=== PATIENT | male | born 1950 | race Hispanic/Latino ===

== ENCOUNTER 2020-03-20 11:58 | Emergency (ER) | payer OTHER ==
--- OUTSIDE RECORDS SUMMARY | 2020-03-20 12:01 | XMS REPORT | Summary of Care ---
:1950 Author Organization [facility] Address [address] [place] [id number] Care Team Providers Name Role Phone Pcp, Patient Does Not Have A Primary Care Provider +[id number] 0-0000 Reason for Visit Reason Comments LAB covid test Encounter Details Date Type Department Care Team Description 01/20/2020 Laboratory Only [facility] Family Bradley Akins, COMPUTER SUPPORT SPECIALIST [address] [id number] Exposure to Covid-19 [facility], Adc Fam Pob I Virus (Primary Dx) [address] [place] [address] Allergies Not on Filedocumented as of this encounter (statuses as of 01/27/2020) Medications Not on filedocumented as of this encounter (statuses as of 01/27/2020) Active Problems Not on filedocumented as of this encounter (statuses as of 01/27/2020) Social History Tobacco Use Types Packs/Day Years Used Date Never Assessed Sex Assigned at Date Recorded Not on file Job Start Date Occupation Industry Not on file Not on file Not on file Travel History Travel Start Travel End No recent travel history available. COVID-19 Exposure Response Date Recorded In the last month, have you been in contact with No / Unsure 01/20/2020 10:22 AM CDT someone who was confirmed or suspected to have Coronavirus / COVID-19? documented as of this encounter Last Filed Vital Signs Not on filedocumented in this encounter Plan of Treatment Health Maintenance Due Date Last Done Comments HEPATITIS C (HCV) SCREEN 1950 DTaP,Tdap,and Td Vaccines (1 - Tdap) 1961 Depression Screening 1962 COLONOSCOPY 02/03/2000 Zoster Recombinant Vaccine (SHINGRIX) (1 of 2) 02/03/2000 Medicare Wellness Visit 2015 PNEUMOCOCCAL VACCINES 65+ (1 of 2 - PCV13) 2015 INFLUENZA VACCINE (#1) 2020 documented as of this encounter Results Not on filedocumented in this encounter Visit Diagnoses Diagnosis Exposure to Covid-19 Virus - Primary documented in this encounter
--- OUTSIDE RECORDS SUMMARY | 2020-03-20 12:01 | XMS REPORT | Continuity of Care Document ---
:1950 Author Organization [facility] t Address [address] [place] [address] Care Team Providers Name Role Phone Lab, Reginaldo Chavira I Attending Clinician Unavailable Problems This patient has no known problems. Allergies, Adverse Reactions, Alerts This patient has no known allergies or adverse reactions. Medications This patient has no known medications. Procedures This patient has no known procedures. Encounters Start End Encounter Admission Attending Care Care Encounter Source Date/Time Date/Time Type Type Clinicians Facility Department ID 2020-01-20 2020-01-27 Laboratory Lab, [facility] [id number] 15:40:00 13:07:09 Only Reginaldo Chavira I [facility] [id number] [place] [id number] [place] [id number] [address] Results This patient has no known results.
--- OUTSIDE RECORDS SUMMARY | 2020-03-20 12:01 | XMS REPORT | Summary of Care ---
:1950 Author Organization [facility] Address [address] [place] [id number] Care Team Providers Name Role Phone Pcp, Patient Does Not Have A Primary Care Provider +[id number] 0-0000 Reason for Visit Reason Comments LAB covid test Encounter Details Date Type Department Care Team Description 01/20/2020 Laboratory Only [facility] Family Bradley Akins, MANAGER OF APPLICATION DEVELOPMENT [address] [address] Exposure to Covid-19 [facility], Adc Fam Pob I Virus (Primary Dx) [address] [place] [address] Allergies Not on Filedocumented as of this encounter (statuses as of 01/21/2020) Medications Not on filedocumented as of this encounter (statuses as of 01/21/2020) Active Problems Not on filedocumented as of this encounter (statuses as of 01/21/2020) Social History Tobacco Use Types Packs/Day Years [...]
--- NOTE | 2020-03-20 13:42 | RAD REPORT ---
EXAM DESCRIPTION: RAD - Ankle Right 3 View - 03/20/2020 1:28 pm CLINICAL HISTORY: ankle injury, persistent pain following trauma COMPARISON: No comparisons FINDINGS: No fracture, dislocation or periosteal reaction. No joint effusion seen. No joint space na rrowing. Very small plantar spur is present. Patient has spurring at the Achilles attachment. No susp icious soft tissue finding. IMPRESSION: Negative right ankle for acute or significant finding.
--- NOTE | 2020-03-20 13:45 | RAD REPORT ---
EXAM DESCRIPTION: RAD - Foot Left 3 View - 03/20/2020 1:28 pm CLINICAL HISTORY: foot injury, persistent pain following trauma COMPARISON: Foot Left 3 View dated 01/14/2017 FINDINGS: No acute fracture changes are seen. No periosteal reaction. Deformity of the fourth and fi fth proximal phalanges heads noted similar to comparison. The lateral subluxation deformities of the fourth and fifth middle phalanges match prior imaging. Flexion deformity at the third DIP joint has n ot changed. Remodeling is present from old fifth metatarsal base fracture. No air or foreign body in the soft tissues. IMPRESSION: Chronic changes are present in the left foot as detailed similar to 2017. No acute findi ng.
--- NOTE | 2020-03-20 13:45 | RAD REPORT ---
EXAM DESCRIPTION: RAD - Knee Right 3 View - 03/20/2020 1:28 pm CLINICAL HISTORY: knee pain, trauma COMPARISON: No comparisons FINDINGS: No fracture, dislocation or periosteal reaction.No joint effusion seen. No joint space georgina rowing. No foreign body or other soft tissue abnormality. IMPRESSION: Negative right knee. Clinical concerns for internal derangement or occult bony injury could be further assessed with MR im aging.
--- NOTE | 2020-03-20 13:58 | ER ---
Nurse's Notes [facility] Name: Faisal Monteiro Age: 70 yrs Sex: Male : 1950 Arrival Date: 03/20/2020 Time: 12:04 Bed 14 Private MD: Diagnosis: Contusion of left foot;Sprain of ankle;Pain in right knee Presentation: 03/20 12:08 Chief complaint: Patient states: "About a week ago I dropped a small electrical motor aj1 on the top of my foot and its still throbbing and a lot of pain on the left side. And on the right side I stepped in a hole in the back yard and I think I twisted my ankle and then the knee it starting to feel swollen and my thigh feels bruised and I feel little nodules or balls in the veins on my thigh". Coronavirus screen: Client denies travel out of the [place] in the last 14 days. Ebola Screen: Patient denies travel to an Ebola-affected area in the 21 days before illness onset. Initial Sepsis Screen: Does the patient meet any 2 criteria? No. Patient's initial sepsis screen is negative. Does the patient have a suspected source of infection? No. Patient's initial sepsis screen is negative. Risk Assessment: Do you want to hurt yourself or someone else? Patient reports no desire to harm self or others. Onset of symptoms was March 2020. 12:08 Method Of Arrival: Wheelchair aj1 12:08 Acuity: ELVER 3 aj1 Triage Assessment: 12:17 General: Appears in no apparent distress. comfortable, Behavior is calm, cooperative, aj1 appropriate for age. Pain: Complains of pain in right leg and left leg. Neuro: Level of Consciousness is awake, alert, obeys commands, Oriented to person, place, time, situation. Respiratory: Airway is patent Respiratory effort is even, unlabored, Respiratory pattern is regular, symmetrical. Historical: - Allergies: 12:17 Morphine; aj1 - Home Meds: 12:17 losartan 100 mg Oral tab 1 tab once daily [Active]; atorvastatin oral oral [Active]; aj1 venlafaxine oral oral [Active]; finasteride oral oral [Active]; insulin [Active]; Metformin Oral [Active]; - PMHx: 12:17 Diabetes - NIDDM; Hypertension; Hyperlipidemia; PTSD; Cirrhosis; aj1 - PSHx: 12:17 foot surgery; aj1 - Immunization history:: Flu vaccine is not up to date. - Social history:: Smoking status: Patient/guardian denies using tobacco. Screenin:20 Abuse screen: Denies threats or abuse. Denies injuries from another. Nutritional ca1 screening: No deficits noted. Tuberculosis screening: No symptoms or risk factors identified. Fall Risk None identified. Assessment: 12:20 General: Appears in no apparent distress. comfortable, Behavior is calm, cooperative, ca1 appropriate for age. Pain: Complains of pain in left leg and right leg Pain began 4 days ago. Neuro: Level of Consciousness is awake, alert, obeys commands, Oriented to person, place, time, situation. Derm: Skin is intact, is healthy with good turgor, Skin is pink, warm \\T\\ dry. Musculoskeletal: Circulation, motion, and sensation intact. Capillary refill < 3 seconds. 13:25 Reassessment: Patient appears in no apparent distress at this time. Patient and/or ca1 family updated on plan of care and expected duration. Pain level reassessed. Patient is alert, oriented x 3, equal unlabored respirations, skin warm/dry/pink. 14:10 Reassessment: Patient appears in no apparent distress at this time. Patient is alert, ca1 oriented x 3, equal unlabored respirations, skin warm/dry/pink. Vital Signs: 12:08 BP 150 / 85; Pulse 75; Resp 18; Temp 97.9; Pulse Ox 99% on R/A; Weight 94.35 kg (R); aj1 Height 5 ft. 9 in. (175.26 cm) (R); Pain 8/10; 13:25 BP 148 / 79; Pulse 67; Resp 15 S; Pulse Ox 100% on R/A; ca1 14:10 BP 151 / 82; Pulse 68; Resp 16 S; Pulse Ox 100% on R/A; ca1 12:08 Body Mass Index 30.72 (94.35 kg, 175.26 cm) aj ED Course: 12:04 Patient arrived in ED. mr 12:14 Triage completed. aj1 12:17 Arm band placed on Patient placed in an exam room. [facility] 12:19 Shahzad Linares PA is PHCP. scar 12:19 Adria Rivas MD is Attending Physician. [facility] 12:19 Shyanne Corcoran, RN is Primary Nurse. ca1 12:20 Patient has correct armband on for positive identification. Bed in low position. Call ca1 light in reach. Side rails up X 1. Pulse ox on. NIBP on. 13:28 Foot Left 3 View XRAY In Process Unspecified. EDMS 13:28 Ankle Right 3 View XRAY In Process Unspecified. EDMS 13:28 Knee Right 3 View XRAY In Process Unspecified. EDMS 13:56 US Extremity Venous Unilateral Ltd In Process Unspecified. EDMS 14:14 No provider procedures requiring assistance completed. Patient did not have IV access ca1 during this emergency room visit. Audi wrap to left ankle, right knee and right ankle. Administered Medications: No medications were administered Outcome: 13:58 Discharge ordered by MD. [facility] 14:14 Discharged to home via wheelchair, with significant other. ca1 14:14 Condition: stable 14:14 Discharge instructions given to patient, Instructed on discharge instructions, follow up and referral plans. Demonstrated understanding of instructions, follow-up care. 14:16 Patient left the ED. ca1 Signatures: Dispatcher [employer] EDMS Sindi Stark RN RN aj1 Shahzad Linares PA PA scar AsherHeather mr Shyanne Corcoran, RN RN ca1 Corrections: (The following items were deleted from the chart) 14:15 14:15 BP 151 / 82; Pulse 68bpm; Resp 16bpm; Spontaneous; Pulse Ox 100% RA; ca1 ca1 14:16 14:15 Reassessment: Patient appears in no apparent distress at this time. Patient is ca1 alert, oriented x 3, equal unlabored respirations, skin warm/dry/pink. ca1
--- NOTE | 2020-03-20 13:58 | EDPHYS ---
Physician Documentation [facility] Name: Faisal Monteiro Age: 70 yrs Sex: Male : 1950 Arrival Date: 03/20/2020 Time: 12:04 Bed 14 Private MD: ED Physician Adria Rivas HPI: 03/20 12:30 This 70 yrs old Male presents to ER via Wheelchair with complaints of Foot jmm Pain, Knee Pain. 12:30 The patient presents with an injury, pain. Onset: The symptoms/episode began/occurred jmm acutely, 1 day(s) ago. Modifying factors: The symptoms are alleviated by nothing. the symptoms are aggravated by movement, weight bearing, bending knee. This is a 70 year old male with a history of DM, HTN, HLP, Cirrhosis that presents to the ED with complaints of left foot pain after dropping a motor on it, the patient then developed right ankle pain when mis stepping and rolling his ankle today. Patient also complains of ongoing left knee pain and thigh pain. Denies injury to the left knee. . Historical: - Allergies: 12:17 Morphine; aj1 - Home Meds: 12:17 losartan 100 mg Oral tab 1 tab once daily [Active]; atorvastatin oral oral [Active]; aj1 venlafaxine oral oral [Active]; finasteride oral oral [Active]; insulin [Active]; Metformin Oral [Active]; - PMHx: 12:17 Diabetes - NIDDM; Hypertension; Hyperlipidemia; PTSD; Cirrhosis; aj1 - PSHx: 12:17 foot surgery; aj1 - Immunization history:: Flu vaccine is not up to date. - Social history:: Smoking status: Patient/guardian denies using tobacco. ROS: 13:53 Constitutional: Negative for fever, chills, and weight loss, Cardiovascular: Negative jmm for chest pain, palpitations, and edema, Respiratory: Negative for shortness of breath, cough, wheezing, and pleuritic chest pain. 13:53 MS/extremity: Positive for injury or acute deformity, pain. 13:53 All other systems are negative. Exam: 13:53 Constitutional: This is a well developed, well nourished patient who is awake, alert, jmm and in no acute distress. Head/Face: atraumatic. Eyes: EOMI, no conjunctival erythema appreciated ENT: Moist Mucus Membranes Neck: Trachea midline, Supple Chest/axilla: Normal chest wall appearance and motion. Cardiovascular: Regular rate and rhythm. No edema appreciated Respiratory: Normal respirations, no respiratory distress appreciated Abdomen/GI: Non distended, soft Back: Normal ROM Skin: General appearance color normal 13:53 Musculoskeletal/extremity: ROM: painful rom noted to the right knee, compartments are soft,. full dorsalis pulse, NVI. . 13:53 Skin: Appearance: Color: normal in color. 13:53 Neuro: Orientation: is normal, Mentation: is normal, Memory: is normal. 13:53 Psych: Behavior/mood is pleasant, cooperative. Vital Signs: 12:08 BP 150 / 85; Pulse 75; Resp 18; Temp 97.9; Pulse Ox 99% on R/A; Weight 94.35 kg (R); aj1 Height 5 ft. 9 in. (175.26 cm) (R); Pain 8/10; 13:25 BP 148 / 79; Pulse 67; Resp 15 S; Pulse Ox 100% on R/A; ca1 14:10 BP 151 / 82; Pulse 68; Resp 16 S; Pulse Ox 100% on R/A; ca1 12:08 Body Mass Index 30.72 (94.35 kg, 175.26 cm) aj1 MDM: 12:25 Patient medically screened. khanh 13:55 Data reviewed: vital signs, nurses notes. Counseling: I had a detailed discussion with scar the patient and/or guardian regarding: the historical points, exam findings, and any diagnostic results supporting the discharge/admit diagnosis, the need for outpatient follow up, to return to the emergency department if symptoms worsen or persist or if there are any questions or concerns that arise at home. ED course: Imaging studies negative. Patient is advised to follow up with pcp for reevaluation. Patient is other jauregui given strict return precautions. Patient understood and agrees with the plan of care. . 03/20 12:29 Order name: Foot Left 3 View XRAY; Complete Time: 13:46 [facility] 03/20 12:29 Order name: Ankle Right 3 View XRAY; Complete Time: 13:46 [facility] 03/20 12:29 Order name: Knee Right 3 View XRAY; Complete Time: 13:46 [facility] 03/20 12:29 Order name: US Extremity Venous Unilateral Ltd; Complete Time: 14:24 [facility] 03/20 13:58 Order name: Audi wrap-joint; Complete Time: 14:14 [facility] Administered Medications: No medications were administered Disposition: 03/21 06:05 Co-signature as Attending Physician, Adria Rivas MD I agree with the assessment and khanh plan of care. Disposition: 03/20/20 13:58 Discharged to Home. Impression: Contusion of left foot, Sprain of ankle, Pain in right knee. - Condition is Stable. - Discharge Instructions: Ankle Sprain, Foot Contusion, Knee Pain. - Medication Reconciliation Form, Thank You Letter, Antibiotic Education, Prescription Opioid Use form. - Follow up: Private Physician; When: 2 - 3 days; Reason: Recheck today's complaints, Continuance of care, Re-evaluation by your physician. Signatures: Dispatcher [employer] EDSindi Waldrop, BRETT RN ajAdria Denise MD MD cha Mickail, Joel, PA PA [facility] Shyanne Corcoran RN RN ca1 Corrections: (The following items were deleted from the chart) 03/20 13:54 12:30 This is a 70 year old male with a history of DM, HTN, HLP, Cirrhosis that modest[place] presents to the ED with complaints of . [facility] 14:16 13:58 03/20/2020 13:58 Discharged to Home. Impression: Contusion of left foot; Sprain ca1 of ankle; Pain in right knee. Condition is Stable. Forms are Medication Reconciliation Form, Thank You Letter, Antibiotic Education, Prescription Opioid Use. Follow up: Private Physician; When: 2 - 3 days; Reason: Recheck today's complaints, Continuance of care, Re-evaluation by your physician. [facility]
--- NOTE | 2020-03-20 14:11 | RAD REPORT ---
EXAM DESCRIPTION: US - Extremity Venous Uni Ltd - 03/20/2020 1:56 pm CLINICAL HISTORY: right kneepain, right thigh pain COMPARISON: None. TECHNIQUE: Real-time sonographic evaluation of the right lower extremity deep venous systems was per formed. FINDINGS: Normal compressibility, flow augmentation, phasic flow and spontaneous flow are identified in the right lower extremity common femoral, superficial femoral, popliteal and posterior tibial vei ns. No intraluminal filling defects seen. IMPRESSION: No DVT in the right lower extremity.
[2020-03-20 14:23] VITALS: TEMP 97.9
[2020-03-20 14:24] VITALS: O2SAT 100
[2020-03-20 14:26] VITALS: BP 151/82
== END 2020-03-20 14:16 | disposition home or self-care (01) ==
LOC: ER 11:58
DX: S93.402A Sprain of unspecified ligament of left ankle, initial encounter (principal); M25.561 Pain in right knee; W22.8XXA Striking against or struck by other objects, initial encounter; Y93.9 Activity, unspecified; Y92.9 Unspecified place or not applicable; I10 Essential (primary) hypertension; E11.9 Type 2 diabetes mellitus without complications; E78.5 Hyperlipidemia, unspecified; Z79.4 Long term (current) use of insulin; Z88.5 Allergy status to narcotic agent
CPT/HCPCS: 93971; 99283

== ENCOUNTER 2020-08-08 20:11 | Emergency (ER) | payer OTHER ==
[2020-08-08] MEDS ORDERED: FENTANYL CITR 100 MCG/2 ML ONE (23:50)
[2020-08-08] MEDS ORDERED: NA CHLORIDE 0.9% 500 ML ONE (23:50)
[2020-08-08] MEDS ORDERED: ONDANSETRON 4 MG/2 ML VIAL ONE (23:51)
[2020-08-08 23:55] LABS: ALT/SGPT 30 U/L (12-78); AST/SGOT 25 U/L (15-37); Albumin 4.3 g/dL (3.4-5.0); Alkaline Phosphatase 82 U/L (45-117); BUN Blood Urea Nitrogen 10 mg/dL (7-18); Bicarbonate 30 mmol/L (21-32); Bilirubin Direct 0.2 mg/dL (0-0.2); Bilirubin Total 0.5 mg/dL (0.2-1.0); Glucose Level 102 mg/dL (74-106); Lipase 141 U/L (73-393); Potassium 4.1 mmol/L (3.5-5.1); Protein, Total 8.3 g/dL (6.4-8.2); Sodium Level 140 mmol/L (136-145)
[2020-08-09] LABS: Urine Blood TRACE (NEG); Urine Glucose TRACE (NEG); Urine Protein NEGATIVE (NEG); Urine Specific Gravity >1.030 (1.005-1.030)
--- NOTE | 2020-08-09 00:16 | EDPHYS ---
Physician Documentation [facility] Name: Faisal Monteiro Age: 70 yrs Sex: Male : 1950 Arrival Date: 08/08/2020 Time: 20:12 Bed 26 Private MD: ED Physician Kaylin Morrison HPI: 08/08 23:19 This 70 yrs old Male presents to ER via Ambulatory with complaints of jmm Abdominal Pain. 23:19 The patient presents with abdominal pain. Onset: The symptoms/episode began/occurred jmm gradually, 1 day(s) ago. The symptoms do not radiate. Associated signs and symptoms: Pertinent negatives: diarrhea, vomiting. The symptoms are described as achy. Modifying factors: The symptoms are alleviated by nothing, the symptoms are aggravated by nothing. This is a 70 year old male with a history of cirrhosis, DM, HLP, HTN, PTSD that presents to the ED with complaints of left sided abdominal pain beginning approx 1 day ago, worsening today. Denies fever, vomiting, diarrhea. . Historical: - Allergies: 20:37 Morphine; ll1 - PMHx: 20:37 Cirrhosis; Diabetes - NIDDM; Hyperlipidemia; Hypertension; PTSD; ll1 - PSHx: 20:37 foot surgery; ll1 - Immunization history:: Flu vaccine is up to date. - Social history:: Smoking status: Patient denies any tobacco usage or history of. ROS: 23:19 Constitutional: Negative for fever, chills, and weight loss, Cardiovascular: Negative jmm for chest pain, palpitations, and edema, Respiratory: Negative for shortness of breath, cough, wheezing, and pleuritic chest pain. 23:19 Abdomen/GI: Positive for abdominal pain. 23:19 All other systems are negative. Exam: 23:19 Head/Face: atraumatic. Eyes: EOMI, no conjunctival erythema appreciated ENT: Moist jmm Mucus Membranes Neck: Trachea midline, Supple Chest/axilla: Normal chest wall appearance and motion. Cardiovascular: Regular rate and rhythm. No edema appreciated Respiratory: Normal respirations, no respiratory distress appreciated Back: Normal ROM 23:19 Skin: General appearance color normal MS/ Extremity: Moves all extremities, no obvious deformities appreciated, no edema noted to the lower extremities Neuro: Awake and alert, normal gait Psych: Behavior is normal, Mood is normal, Patient is cooperative and pleasant 23:19 Constitutional: The patient appears alert, awake, uncomfortable. 23:19 Abdomen/GI: Inspection: abdomen appears normal, Bowel sounds: normal, Palpation: soft, moderate abdominal tenderness, in the left lower quadrant. Vital Signs: 20:35 BP 160 / 69; Pulse 76; Resp 17; Temp 98.5; Pulse Ox 98% ; Weight 93.44 kg; Height 5 ft. ll1 8 in. (172.72 cm); Pain 8/10; 22:13 BP 160 / 75; Pulse 64; Resp 18; Pulse Ox 98% on R/A; ll2 22:25 Temp 98.4(O); fu 23:15 BP 153 / 74; Pulse 62; Resp 18; Pulse Ox 96% on R/A; ll2 08/09 00:20 BP 137 / 63; Pulse 66; Resp 17; Pulse Ox 96% on R/A; ll2 08/08 20:35 Body Mass Index 31.32 (93.44 kg, 172.72 cm) ll1 MDM: 08/08 23:06 Patient medically screened. [facility] 08/09 00:13 Data reviewed: vital signs, nurses notes. Counseling: I had a detailed discussion with nicolle the patient and/or guardian regarding: the historical points, exam findings, and any diagnostic results supporting the discharge/admit diagnosis, the need for outpatient follow up, to return to the emergency department if symptoms worsen or persist or if there are any questions or concerns that arise at home. 00:14 ED course: CT negative for an acute process. Patient advised to follow up with pcp for [facility] further evaluation. patient is otherwise given strict return precautions. Patient understood and agrees with the plan of care. . 08/08 23:14 Order name: Basic Metabolic Panel; Complete Time: 23:56 [facility] 08/08 23:14 Order name: CBC with Diff [facility] 08/08 23:14 Order name: Hepatic Function; Complete Time: 23:56 [facility] 08/08 23:14 Order name: Lipase; Complete Time: 23:56 [facility] 08/08 23:14 Order name: CT Abd/Pelvis - IV Contrast Only [facility] 08/08 23:22 Order name: Urine Dipstick--Ancillary (enter results); Complete Time: 00:[address] [facility] 08/08 23:14 Order name: IV Saline Lock; Complete Time: 23:31 [facility] 08/08 23:14 Order name: Labs collected and sent; Complete Time: 23:31 [facility] 08/08 23:48 Order name: Labs - recollect needed: sandy Del Valle, the purple top is clotted; Complete Time: 00:05 Administered Medications: 08/08 23:50 Drug: Zofran (Ondansetron) 4 mg Route: IVP; Site: right antecubital; ll2 23:51 Drug: NS 0.9% 500 ml Route: IV; Rate: bolus; Site: right antecubital; ll2 23:51 Drug: fentaNYL (PF) 50 mcg Route: IVP; Site: right antecubital; ll2 Disposition: 08/09 00:14 Chart complete. Chart complete. [facility] Disposition: 08/09/20 00:15 Discharged to Home. Impression: Lower abdominal pain, unspecified. - Condition is Stable. - Discharge Instructions: Abdominal Pain, Adult. - Prescriptions for Bentyl 20 mg Oral Tablet - take 1 tablet by ORAL route every 6 hours As needed; 20 tablet. - Medication Reconciliation Form, Thank You Letter, Antibiotic Education, Prescription Opioid Use form. - Follow up: Private Physician; When: 2 - 3 days; Reason: Recheck today's complaints, Continuance of care, Re-evaluation by your physician. Addendum: 08/10/2020 06:57 Co-signature as Attending Physician, Kaylin Morrison MD. m a2 Signatures: Dispatcher [employer] EDLisandro Donald RN RN Shahzad Linares PA PA [facility] Kaylin Morrison MD MD id2 Lois Whipple RN RN ll2 Namrata Rothman RN RN ll1 Corrections: (The following items were deleted from the chart) 08/09 00:51 00:15 08/09/2020 00:15 Discharged to Home. Impression: Lower abdominal pain, ll2 unspecified. Condition is Stable. Forms are Medication Reconciliation Form, Thank You Letter, Antibiotic Education, Prescription Opioid Use. Follow up: Private Physician; When: 2 - 3 days; Reason: Recheck today's complaints, Continuance of care, Re-evaluation by your physician. [facility]
--- NOTE | 2020-08-09 00:16 | ER ---
Nurse's Notes [facility] Name: Faisal Monteiro Age: 70 yrs Sex: Male : 1950 Arrival Date: 08/08/2020 Time: 20:12 Bed 26 Private MD: Diagnosis: Lower abdominal pain, unspecified Presentation: 08/08 20:35 Chief complaint: Patient states: LUQ abd pain that wraps to L side for <24 hours. ll1 Slight nausea, no fever or dysuria. Coronavirus screen: Client denies travel out of the [place] in the last 14 days. At this time, the client does not indicate any symptoms associated with coronavirus-19. Ebola Screen: Patient denies travel to an Ebola-affected area in the 21 days before illness onset. Initial Sepsis Screen: Does the patient meet any 2 criteria? No. Patient's initial sepsis screen is negative. Does the patient have a suspected source of infection? Yes: Acute abdominal pain. Risk Assessment: Do you want to hurt yourself or someone else? Patient reports no desire to harm self or others. Onset of symptoms was August 07, 2020. 20:35 Method Of Arrival: Ambulatory ll1 20:35 Acuity: ELVER 3 ll1 Historical: - Allergies: 20:37 Morphine; ll1 - PMHx: 20:37 Cirrhosis; Diabetes - NIDDM; Hyperlipidemia; Hypertension; PTSD; ll1 - PSHx: 20:37 foot surgery; ll1 - Immunization history:: Flu vaccine is up to date. - Social history:: Smoking status: Patient denies any tobacco usage or history of. Screenin:13 Abuse screen: Denies threats or abuse. Nutritional screening: No deficits noted. ll2 Tuberculosis screening: No symptoms or risk factors identified. Fall Risk None identified. Assessment: 22:14 General: Appears in no apparent distress. Behavior is calm, cooperative, appropriate ll2 for age. Pain: Complains of pain in abdomen. Neuro: Level of Consciousness is awake, alert, obeys commands, Oriented to person, place, time, situation. Cardiovascular: Patient's skin is warm and dry. Respiratory: Airway is patent Respiratory effort is even, unlabored, Respiratory pattern is regular, symmetrical. GI: Bowel sounds present X 4 quads. Abd is soft. : No signs and/or symptoms were reported regarding the genitourinary system. EENT: No signs and/or symptoms were reported regarding the EENT system. Derm: Skin is intact, is healthy with good turgor, Skin is dry, Skin is pink, warm \T\ dry. Skin temperature is warm. Musculoskeletal: Circulation, motion, and sensation intact. Range of motion: limited in left ankle. 23:29 Reassessment: Patient and/or family updated on plan of care and expected duration. Pain ll2 level reassessed. Patient is alert, oriented x 3, equal unlabored respirations, skin warm/dry/pink. 08/09 00:37 Reassessment: Patient and/or family updated on plan of care and expected duration. Pain ll2 level reassessed. Patient is alert, oriented x 3, equal unlabored respirations, skin warm/dry/pink. pt informed of D/C and is calling a ride. Vital Signs: 08/08 20:35 BP 160 / 69; Pulse 76; Resp 17; Temp 98.5; Pulse Ox 98% ; Weight 93.44 kg; Height 5 ft. ll1 8 in. (172.72 cm); Pain 8/10; 22:13 BP 160 / 75; Pulse 64; Resp 18; Pulse Ox 98% on R/A; ll2 22:25 Temp 98.4(O); fu 23:15 BP 153 / 74; Pulse 62; Resp 18; Pulse Ox 96% on R/A; ll2 08/09 00:20 BP 137 / 63; Pulse 66; Resp 17; Pulse Ox 96% on R/A; ll2 08/08 20:35 Body Mass Index 31.32 (93.44 kg, 172.72 cm) ll1 ED Course: 08/08 20:12 Patient arrived in ED. cl3 20:37 Triage completed. ll1 20:38 Arm band placed on. ll1 22:03 Shahzad Linares PA is PHCP. [facility] 22:03 Kaylin Morrison MD is Attending Physician. [facility] 22:12 Lois Whipple, BRETT is Primary Nurse. ll2 22:13 Patient has correct armband on for positive identification. Bed in low position. Call ll2 light in reach. Side rails up X 1. Pulse ox on. NIBP on. 22:13 No provider procedures requiring assistance completed. ll2 23:30 Initial lab(s) drawn, by me, sent to lab. Urine collected: clean catch specimen, clear. ll2 Inserted saline lock: 22 gauge in right antecubital area, using aseptic technique. Blood collected. 23:49 CT Abd/Pelvis - IV Contrast Only In Process Unspecified. EDMS 08/09 00:52 IV discontinued, intact, bleeding controlled, No redness/swelling at site. Pressure ll2 dressing applied. Administered Medications: 08/08 23:50 Drug: Zofran (Ondansetron) 4 mg Route: IVP; Site: right antecubital; ll2 23:51 Drug: NS 0.9% 500 ml Route: IV; Rate: bolus; Site: right antecubital; ll2 23:51 Drug: fentaNYL (PF) 50 mcg Route: IVP; Site: right antecubital; ll2 Outcome: 08/09 00:15 Discharge ordered by . scar 00:51 Patient left the ED. ll2 00:52 Discharged to home ambulatory. 2 00:52 Condition: stable 00:52 Discharge instructions given to patient, Instructed on discharge instructions, follow up and referral plans. medication usage, Demonstrated understanding of instructions, follow-up care, medications, Prescriptions given X 1. Signatures: Dispatcher [employer] EDAZ Shahzad Linares PA PA Jha Diana, Erasmo Petit RN cl3 Lois Whipple RN RN ll2 Namrata Rothman RN RN ll1
[2020-08-09 00:23] LABS: Absolute Lymphocytes (CBC) 2.4 K/uL (0.7-4.9); Basophils % 1.1 % (0-1.3); Hematocrit 40.1 % (39.6-49.0); Lymphocytes % 32.2 % (15.3-44.8); MPV 9.9 fL (7.6-11.3); RBC Red Blood Cell Count 4.53 M/uL (4.33-5.43)
[2020-08-09 01:20] VITALS: TEMP 98.4
[2020-08-09 01:21] VITALS: O2SAT 96
[2020-08-09 01:22] VITALS: BP 137/63
--- NOTE | 2020-08-09 12:28 | RAD REPORT ---
EXAM DESCRIPTION: CT - Abdomen Pelvis W Contrast - 08/09/2020 6:[address] Abdomen and Pelvis With Intravenous Contrast CLINICAL HISTORY: The patient is 70 years old and is Male; left sided abdominal pain TECHNIQUE: Axial computed tomography images of the abdomen and pelvis with intravenous contrast. S agittal and coronal reformatted images were created and reviewed. This CT exam was performed using one or more of the following dose reduction techniques: automated exposure control, adjustment of t he mA and/or kV according to patient size, and/or use of iterative reconstruction technique. COMPARISON: No relevant prior studies available. FINDINGS: LUNG BASES: Atelectasis of the left lower lobe is present. MEDIASTINUM: A large hiatal hernia containing the stomach is present. ABDOMEN: LIVER: The liver has a nodular contour and is slightly heterogeneous. GALLBLADDER AND BILE DUCTS: No calcified stones. No ductal dilation. PANCREAS: No ductal dilation. No mass. SPLEEN: Unremarkable. ADRENALS: Unremarkable. No mass. KIDNEYS AND URETERS: Unremarkable. The kidneys enhance symmetrically. No obstructing renal or ure teral calculus is seen. No hydronephrosis or hydroureter. No perinephric fluid or stranding. STOMACH AND BOWEL: The stomach is minimally distended with fluid. The small bowel is normal in ca liber. A moderate amount of stool is present throughout colon. Scattered colonic diverticula are note d without surrounding inflammation. There is no bowel obstruction. PELVIS: APPENDIX: The appendix is normal in caliber without surrounding inflammation. BLADDER: The bladder is not well distended. Mild bladder wall thickening is present. REPRODUCTIVE: The prostate is heterogeneous and mildly enlarged with protrusion into the base of the bladder. ABDOMEN and PELVIS: INTRAPERITONEAL SPACE: Unremarkable. No free air. No significant fluid collection. BONES/JOINTS: The bones are osteopenic. SOFT TISSUES: There are small bilateral fat containing inguinal hernias. VASCULATURE: Atherosclerosis of the vasculature is present. The vessels are normal in caliber. No abdominal aortic aneurysm. LYMPH NODES: Unremarkable. No enlarged lymph nodes. OTHER FINDINGS: Elevation of the left hemidiaphragm is noted. IMPRESSION: 1. Colonic diverticulosis. 2. Large hiatal hernia containing the entire stomach. No evidence of obstruction. 3. Mildly enlarged prostate which is heterogeneous. Recommend correlation with physical exam and PS A. 4. Cirrhotic appearance of the liver. Electronically signed by: Christiana Ramachandran MD 08/09/2020 12:01 AM FINISH ROLLS OPERATOR Due to temporary technical issues with the PACS/Fluency reporting system, reports are being signed by the in house radiologists without review as a courtesy to insure prompt reporting. The interpreting radiologist is fully responsible for the content of the report.
--- OUTSIDE RECORDS SUMMARY | 2020-08-10 02:19 | XMS REPORT | Continuity of Care Document ---
:1950 Author Organization [facility] t Address [address] [place] [address] Care Team Providers Name Role Phone CISSE Attending Clinician Unavailable Pcp, Does Not Have A Attending Clinician Lab, Fam Pob I Attending Clinician Unavailable ABDIEL Attending Clinician Unavailable Problems Condition Condition Condition Status Onset Resolution Last Treating Co mments Source Name Details Category Date Date Treatment Clinician Date History of History of Problem Resolve Univers depression depression d it y of [place] [facility]ici [facility] History of History of Problem Resolve Univers diabetes diabetes d ity of mellitus mellitus [place] [facility] History of History of Problem Resolve Univers sleep sleep d ity of apnea apnea [place] [facility] Injury of Injury of Problem Active Uni vers deep deep ity of peroneal peroneal [place] nerve nerve Physici ans Weakness Weakness Problem Active Unive rs ity of [place] Physici ans Polyradicu Polyradicu Problem Active U nivers lopathy lopathy ity of [place] Physici ans Weakness Weakness Problem Active Unive rs of left of left ity of lower lower [place] extremity extremity Phys ici ans Diabetes Diabetes Problem Active Unive rs mellitus mellitus ity of type 2, type 2, [place] uncontroll uncontroll Ph ysici ed ed ans 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 Family History Family Member Diagnosis Comments Start Date Stop Date Source Mother Family history of Univers ity of [place] diabetes mellitus Physici ans Mother Family history of [facility] it[facility] of [place] hypertension Physicians Social History Smoking Status Start Date Stop Date Source Never smoked tobacco (finding) [facility] of [place] [facility] Medications Ordered Filled Start Stop Current Ordering Indication Dosage Frequency Signature Comments Components Source Medication Medication Date Date Medication? Clinician (SIG) Name Name Gabapentin Gabapentin Yes SEARCH LEAD Uni vers 100 MG Oral 100 MG Oral i ty of Capsule Capsule [place] [facility] Naproxen Naproxen Yes SEARCH LEAD Univers TABS TABS ity of [place] [facility]ici [facility] Losartan Losartan Yes SEARCH LEAD [facility] Potassium Potassium ity o f TABS TABS [place] [facility] Levemir Levemir Yes SEARCH LEAD Univers FlexPen 100 FlexPen 100 i ty of UNIT/ML UNIT/ML [place] SOPN SOPN Physici ans Vital Signs Vital Name Observation Time Observation Value Comments Source Systolic blood 2020-08-04 162 mm[Hg] Location: [facility]; [facility] 14:38:00 Position: [place] Physician s Sitting Diastolic blood 2020-08-04 76 mm[Hg] [facility] 14:38:00 Position: [place] Phys[facility] s Sitting Body height 2020-08-04 68 [in_us] [facility] 14:38:00 [place] [facility] s Weight 2020-08-04 209 [lb_av] [facility] 14:38:00 [place] [facility] s Body mass index 2020-08-04 31.78 kg/m2 University o f (BMI) [Ratio] 14:38:00 [place] [facility] Body temperature 2020-08-04 97.4 [degF] [facility] 14:38:00 [place] [facility] Heart Rate 2020-08-04 65 /min [place] [facility] 14:38:00 [place] Phys[facility] s O2 SAT 2020-08-04 99 % Source: [place] [facility] 14:38:00 [place] [facility] s Systolic blood 2020-06-02 123 mm[Hg] Location: [facility]; [facility] 15:42:00 Position: [place] Physician s Sitting Diastolic blood 2020-06-02 70 mm[Hg] Location: [facility]; [facility] 15:42:00 Position: [place] Physician s Sitting Body height 2020-06-02 68 [in_us] [place] [facility] 15:42:00 [place] [facility] Weight 2020-06-02 197 [lb_av] [facility] of 15:42:00 [place] [facility] Body mass index 2020-06-02 29.95 kg/m2 University o f (BMI) [Ratio] 15:42:00 [place] [facility] ns Body temperature 2020-06-02 97.5 [degF] [facility] 15:42:00 [place] [facility] Heart Rate 2020-06-02 99 /min [facility] 15:42:00 [place] [facility] O2 SAT 2020-06-02 97 % [facility] 15:42:00 [place] [facility] s Systolic blood 2020-05-12 178 mm[Hg] Location: [facility] 13:31:00 Position: [place] Physician s Sitting Diastolic blood 2020-05-12 89 mm[Hg] Location: [facility] 13:31:00 Position: [place] Physician s Sitting Body height 2020-05-12 68 [in_us] [facility] 13:31:00 [place] [facility] s Weight 2020-05-12 197 [lb_av] [facility] 13:31:00 [place] [facility] s Body mass index 2020-05-12 29.95 kg/m2 [place] [facility] (BMI) [Ratio] 13:31:00 [place] [facility] Body temperature 2020-05-12 97.9 [degF] [facility] 13:31:00 [place] [facility] Heart Rate 2020-05-12 81 /min [facility] 13:31:00 [place] [facility] O2 SAT 2020-05-12 100 % [facility] 13:31:00 [place] [facility] Procedures Procedure Date / Time Performing Clinician Source Performed [QL] ROZ PANEL, 2020-08-04 00:00:00 [facility] COMPREHENSIVE Physicians [QL] ANCA SCREEN WITH 2020-08-04 00:00:00 [facility] MPO AND PR3 WITH REFLEX Physicia ns TO ANCA TITER [QL] C-REACTIVE PROTEIN 2020-08-04 00:00:00 [facility] Physicians [Q] SED RATE BY MODIFIED 2020-08-04 00:00:00 [facility] WESTERGREN Physicians [QL] BASIC METABOLIC 2020-06-02 00:00:00 Univers ity [facility] PANEL W/EGFR Physicians CT Abdomen w/wo contrast 2020-06-02 00:00:00 Uni [facility] [id number] Pelvis w/wo contrast 2020-06-02 00:00:00 [facility] [address] [facility] [UTP] EMG 2020-05-12 00:00:00 [place] [facility] Physicians MRI Spine thoracic w/wo 2020-05-12 00:00:00 [facility] contrast 10847 Physicians MRI Spine lumbar w/wo 2020-05-12 00:00:00 [facility] contrast [id number] Physicians Plan of Care Planned Activity Planned Date Details Comments Source Diagnostic Test 2020-06-02 CT Abdomen w/wo [facility] Pending 00:00:00 contrast [id number] Physicians [code = 69206] Diagnostic Test 2020-06-02 CT Pelvis w/wo [facility] Pending 00:00:00 contrast [id number] Physicians [code = [id number]] Diagnostic Test 2020-05-17 [UTP] EMG [code = Univers ity [facility] Pending 00:00:00 [UTP] EMG] Physicians Diagnostic Test 2020-05-12 [UTP] EMG [code = Univers ity [facility] Pending 00:00:00 [UTP] EMG] Physicians Diagnostic Test 2020-05-12 [UTP] EMG [code = Univers ity [facility] Pending 00:00:00 [UTP] EMG] Physicians Future Appointment 2020-12-22 Eitan GRAYSON [facility] 13:00:00 Physicians Encounters Start End Encounter Admission Attending Care Care Encounter Source Date/Time Date/Time Type Type Clinicians Facility Department ID 2020-08-04 2020-08-04 KENAN Lopez [facility] Neurology - [id number] Univers 14:00:00 14:00:00 t; [facility] ans 2020-07-02 2020-07-02 Telephone PcpDAVY [id number] 00:00:00 00:00:00 Patient OLIVIA [id number] Does Not HOSPITAL [id number] Have A [id number] 2020-06-29 2020-06-29 Laboratory Lab, [facility]c [facility] [id number] 16:24:12 16:44:12 Only Fam Pob I Health [id number] [place] [id number] Professio [phone] nal [address] 2020-06-02 2020-06-02 AppointKENAN Kelley [facility] Neurology - [id number] Univers 15:30:00 15:30:00 t; [facility] [place] [facility] 2020-05-17 2020-05-17 Appointmen LISA MEADOWS Neurology - [id number] Univers 08:00:00 08:00:00 t; TK MEADOWS M.D. [facility] 2020-05-12 2020-05-12 Appointmen KENAN CISSE [facility] Neurology - [id number] Univers 14:00:00 14:00:00 t; [facility] 2020-01-20 2020-01-27 Laboratory Lab, [facility] [id number] 15:40:00 13:07:09 Only Fam Pob I Health [id number] [place] [id number] Professio [phone] nal [address] One Results Test Description Test Time Test Comments Results Result Comments Source [QL] SED RATE BY MODIFIED MIRANDA 2020-08-04 00:00:00 Test Item Value Reference Range Interpretation Comme nts SED RATE BY MODIFIED MIRANDA 2 mm/h < OR = 20 N SPECIMEN RECEIVED DATE AND TIME: (test code = SED RATE BY MODIFIED [id number] MIRANDA) [facility] Physicians[QL] ROZ PANEL, [id number] 00:00:00 Test Item Value Reference Range Interpretation Comments ROZ SCREEN, IFA NEGATIVE NEGATIVE N ROZ IFA is a first line (test code = ROZ screen for detecting SCREEN, IFA) thepresence of up to approximately 1 50 autoantibodies invarious autoimmune dise ases. A negative ROZ IF A resultsuggests an ROZ-associated autoimmune disease is notp resent at this time, but is not definitive. If thereis high clinical suspic ion for Sjogren's syndr ome,testing for anti-SS-A/R o antibody should be considered.Anti -Karyn-1 antibody should be considered for clinicallysuspe cted inflammatory my opathies. AC-0: Negative International Consensus on AN A Patterns(https: //doi.org/10. 1515/cclm-2018- 0052) For additional info rmation, please refer tohttp://educat ion.[employer]/faq /BFA330(This link is being p rovided for informational/e ducational purposes only.) SPECIMEN RECEIVED DATE A ND TIME: DNA (DS) ANTIBODY <1 N IU/mL Interpretation (test code = DNA < or (DS) ANTIBODY) = 4 Negati ve 5- 9 Indeterminate > or = 10 Positive SPECIM EN RECEIVED DATE AND TIME: SCL-70 ANTIBODY <1.0 NEG <1.0 NEG N SPECIMEN REC EIVED DATE AND (test code = TIME: SCL-70 ANTIBODY) SM ANTIBODY (test <1.0 NEG <1.0 NEG N code = SM ANTIBODY) SM/GREY PERCHER ANTIBODY <1.0 NEG <1.0 NEG N SPECIMEN REC EIVED DATE AND (test code = TIME: SM/GREY PERCHER ANTIBODY) SJOGRENS ANTIBODY <1.0 NEG <1.0 NEG N (SS-A) (test code = SJOGRENS ANTIBODY (SS-A)) SJOGRENS ANTIBODY <1.0 NEG <1.0 NEG N SPECIMEN R ECEIVED DATE AND (SS-B) (test code TIME: 202041524 = SJOGRENS ANTIBODY (SS-B)) [facility] Physicians[QL] C-REACTIVE [id number] 00:00:00 Test Item Value Reference Range Interpretation Comments C-REACTIVE PROTEIN 1.0 mg/L <8.0 N SPECIMEN RECEIVED DATE (test code = AND TIME: [id number] C-REACTIVE PROTEIN) [facility]icians[facility] Abdomen/Pelvis w/wo contrast [id number] 11:10:00EXAM: CT ABDOMEN AND PELVIS WITH CONTRASTDATE: 06/10/2020 11:10 AM CSTINDICATION: - R29.898 Othersymptoms and signs involving the musculoskeletalsystemADDITIONAL INFORMATION: None.COMPARISON: None.TECHNIQUE: Volumetric CT of the abdomen and pelvis acquired following theintravenous administration of contrast. Axial, coronal and sagittal images areprovided.IV contrast: 98 mL of Omnipaque 300Entericcontrast: Water/Omnipaque 300 mixDLP (mGy-cm): 2175FINDINGS:Client Leader: Noncontributory.Lines, tubes and hardware: None.Lower thorax: Clear.Liver: Slightly lobulated contour of the liver with hypertrophy ofthe leftlobe and caudate lobe suggestive of cirrhotic appearance.Biliary tree: No intra- or extrahepatic bile duct dilation.Gallbladder: Normal.Pancreas: Normal.Spleen: Mild splenomegaly (13 cm).Adrenals: Normal.Kidneys and ureters: Normal.Bladder: Normal.Reproductive organs: Enlarged prostateGastrointestinal tract:Lower esophagus: Normal.Stomach: Large hiatal hernia with most of the stomach in the chest.Small bowel: Normal.Colon: Normal.Appendix: Normal.Peritoneum, mesentery and retroperitoneum: Nofree air, ascites or loculatedfluid.Lymph nodes: Normal.Vasculature:Aorta and branches: Moderate to large amount of calcified atheromatous plaque.No abdominal aortic aneurysm.IVC and veins: Normal.Portal and mesenteric vasculature: Prominent portal vein measuring 1.7 cm.Bones: No acute abnormality.Soft tissues: Peripherally calcified nodule in the right buttock is probablybenign and possibly related to prior injection. Soft tissue stranding in theright lower anterior abdominal wall is nonspecific and could be related toedema/inflammation/injection (series 3 image 69).IMPRESSION: 1. Cirrhotic appearance of the liver with prominence of the portal vein andmild splenomegaly.2. Large hiatal hernia with most of the stomach in the chest.3. Aorto iliac atherosclerotic changes.4. Soft tissue strandingsubcutaneous fat in the right lower anteriorabdominal wall could be related to edema/inflammation/injection site. Correlatewith physical examination findings.--Read by: Cl Jacobs MDDictated Date/time: 06/10/20 14:08Electronically Signed by: Cl Jacobs MD 1 08/11/2013:28FINAL REPORTUnAcadia Healthcare Spine lumbar w/wo contrast [id number] 12:23:00EXAM: MRI THORACIC SPINE WITHOUT AND WITH CONTRAST.EXAM: MRI LUMBAR SPINE WITHOUT AND WITH CONTRAST.DATE: 05/31/2020 11:14 CSTINDICATION: Patient with left-sided foot drop. Patient also complains ofconti nuous back pain.COMPARISON: None.TECHNIQUE: Multiplanar multisequence magnetic resonance imaging images of thethoracic and lumbar spine.IV Contrast: 20 mL Dotarem.FINDINGS:CORD EVALUATION: The visualized cord appears normal in size and signal. Theconus ends behind the T12-L1 disc space level. The nerve roots of the caudaequina appear unremarkable.THORACIC SPINE:The thoracic vertebral body heights aremaintained. There is no focal bonelesion identified. There is no marrow signal abnormality.There is no disc protrusion, canal stenosis or neural foraminal narrowing inthe thoracic spine.LUMBAR SPINE:Surgical changes from prior left L5 laminectomy are noted.The lumbar vertebral body heights are maintained and there is no focal bonelesion. There is no marrow signal abnormality.At L1-2, L2-3 and L3-4, there is no disc protrusion, canal stenosis or neuralforaminal narrowing.At L4-5: There is a minimal disc bulge. There is no canal stenosis or neuralforaminal narrowing. Mild right facet disease is noted. At L5-S1: There is mild facet disease which is more pronounced on the right.There is no disc protrusion, canal stenosis or neural foraminal narrowing.The pre and paravertebral soft tissues appear unremarkable. The visualized softtissues in the abdomen appear unremarkable.IMPRESSION:1. Cord appears normal in size and signal. The conus ends behind the Z34-F1ybzm space level. Nerve roots of the cauda equina appear unremarkable.2. Unremarkable MRI of the thoracic spine with no canal stenosis or neuralforaminal narrowing.3. Surgical changes from prior left L5 laminectomy. Mild enhancement is notedin the surgical bed and this indicates scar tissue.4. There is no canal stenosis or neural foraminal narrowing in the lumbarspine.--Read by: Sujit Hollisictated Date/time: 05/31/20 15:00Electronically Signed by: Sujit Hollis MD 05/31/2015:09FINAL REPORTUnAcadia Healthcare Spine thoracic w/wo contrast [id number] 11:48:00EXAM: MRI THORACIC SPINE WITHOUT AND WITH CONTRAST.EXAM: MRI LUMBAR SPINE WITHOUT AND WITH CONTRAST.DATE: 05/31/2020 11:14 CSTINDICATION: Patient with left-sided foot drop. Patient also complains ofcontinuous back pain.COMPARISON: None.TECHNIQUE: Multiplanar multisequence magnetic resonance imaging images of thethoracic and lumbar spine.IV Contrast: 20 mL Dotarem.FINDINGS:CORD EVALUATION: The visualized cord appears normal in size and signal. Theconus ends behind the T12-L1 disc space level. The nerve roots of the caudaequina appear unremarkable.THORACIC SPINE:The thoracic vertebral body heights aremaintained. There is no focal bonelesion identified. There is no marrow signal abnormality.There is no disc protrusion, canal stenosis or neural foraminal narrowing inthe thoracic spine.LUMBAR SPINE:Surgical changes from prior left L5 laminectomy are noted.The lumbar vertebral body heights are maintained and there is no focal bonelesion. There is no marrow signal abnormality.At L1-2, L2-3 and L3-4, there is no disc protrusion, canal stenosis or neuralforaminal narrowing.At L4-5: There is a minimal disc bulge. There is no canal stenosis or neuralforaminal narrowing. Mild right facet disease is noted.At L5-S1: There is mild facet disease which is more pronounced on the right.There is no disc protrusion, canal stenosis or neural foraminal narrowing.The pre and paravertebral soft tissues appear unrema rkable. The visualized softtissues in the abdomen appear unremarkable.IMPRESSION:1. Cord appears normal in size and signal. The conus ends behind the V42-B6advg space level. Nerve roots of the cauda equina appear unremarkable.2. Unremarkable MRI of the thoracic spine with no canal stenosis or neuralforaminal narrowing.3. Surgical changes from prior left L5 laminectomy. Mild enhancement is notedin thesurgical bed and this indicates scar tissue.4. There is no canal stenosis or neural foraminal narrowing in the lumbarspine.--Read by: Sujit Hollis MDDictated Date/time: 05/31/20 15:00Electronically Signed by: Sujit Hollis MD 05/31/2015:09FINAL REPORTUnShriners Hospitals for Children
--- OUTSIDE RECORDS SUMMARY | 2020-08-10 02:19 | XMS REPORT | Summary of Care ---
:1950 Author Name YOUNG MORALES M.D. Address Unavailable Unavailable , Care Team Providers Name Role Phone KENAN CISSE M.D. 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 Weakness (780.79, R53.1) Status: Active Medications Name Dates Details Gabapentin 100 MG Oral Capsule Refills: 0 Active Naproxen TABS Refills: 0 Active Losartan Potassium TABS Refills: 0 Active Levemir FlexPen 100 UNIT/ML SOPN Refills: 0 Active Allergies and Adverse Reactions Name Dates Details No Known Drug Allergies (Allergy) Status : Active Past Medical History Name Dates Details History of depression (V11.8, Z86.59) St atus: Resolved History of diabetes mellitus (V12.29, Z86.39) Status: Resolved History of sleep apnea (V13.89, Z86.69) Status: Resolved Procedures Procedure Dates Details [UTP] EMG Date: 12-May-2020 [UTP] EMG Date: 12-May-2020 MRI Spine thoracic w/wo contrast [id number] Date: 12-May-2020 MRI Spine lumbar w/wo contrast [id number] Date: 12-May-2020 Immunization Name Dates Details Immunizations not documented Family History Name Dates Details Family history of diabetes mellitus (V18.0, Z83.3) Status: Active Family history of hypertension (V17.49, Z82.49) Status: Active Social History Name Dates Details - Status: Name Dates Details Never smoked tobacco (finding) Vital Signs Date Test Result Details [id number] Systolic blood pressure 178 mm[Hg] Status: Comments: Location: LUE; Position: Sitting Diastolic blood pressure 89 mm[Hg] Status: Comment s: Location: LUE; Position: Sitting Body height 68 in Status: Weight 197 lb Status: Body mass index (BMI) [Ratio] 29.95 kg/m2 Status: Body surface area Derived from formula 2.03 m2 S tatus: Body temperature 97.9 f Status: Heart Rate 81 /min Status: O2 SAT 100 % Status: Results Date Description Value Details Results not documented Plan of Care Name Dates Details Planned Observations [UTP] EMG On: 12-May-2020 Intent Planned Goals not documented Planned Encounters Appointment; KENAN CISSE M.D. On: 02-Jun-2020 15:30 Interventions Provided Labs/Procedures/ImagingTobacco Use Screening; Done: 12 May 2020 Instructions Name Dates Details Instructions not documented Encounters Appointment; KENAN CISSE M.D. On: 12-May-2020 14:00 Encounter Diagnosis: Problem not documented
--- OUTSIDE RECORDS SUMMARY | 2020-08-10 02:20 | XMS REPORT | Summary of Care ---
[...] Date: 12-May-2020 MRI Spine thoracic w/wo contrast [id number] Date: 12-May-2020 MRI Spine lumbar w/wo contrast [id number] Date: 12-May-2020 Immunization Name Dates Details Immunizations not documented Family History Name Dates Details Family history of diabetes mellitus (V18.0, Z83.3) Status: Active Family history of hypertension (V17.49, Z82.49) Status: Active Social History Name Dates Details - Status: Name Dates Details Never smoked tobacco (finding) Vital Signs Date Test Result Details [id number] Systolic blood pressure 178 mm[Hg] Status: Comments: [...] Labs/Procedures/ImagingTobacco Use Screening; Done: 12 May 2020 Discussion/SummaryPatient is a 70 yo M with PMHx of long-standing T2DM, presents to neurology clinic for evaluation ofL foot drop. Patient reports symptoms started after he dropped a heavy object on his foot, but that is unlikely to be the cause or inciting factor for his symptoms. His fall may be related. History andexam is suspicious for L5-S1 radiculopathy vs sciatic mononeuropathy. Peroneal neuropathy at fibularhead is less likely as patient seems to have some tibial nerve involvement also. Weakness of L quadriceps and iliopsoas complicates the clinical picture and we do have to include multilevel lumbar involvement or lumbar plexopathy in the differential. Finally, a T8 sensory level suggests thoracic involvement, though patient does not have any UMN signs (reflexes could be confounded by history of DM). We will begin our evaluation with EMG/NCS of the LLE and spinal imaging. - EMG/NCS at soonest available appt - MRI of L and T spine - RTC 1-2 weeks after results Instructions Name Dates Details Instructions not documented Encounters Appointment; KENAN CISSE M.D. On: 12-May-2020 14:00 Encounter Diagnosis: Problem not documented
--- OUTSIDE RECORDS SUMMARY | 2020-08-10 02:20 | XMS REPORT | Summary of Care ---
:1950 Author Name Fili Armstrong M.A. 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 Weakness (780.79, R53.1) Status: Active Polyradiculopathy (729.2, M54.10) Status : Active Weakness of left lower extremity (729.89, R29.898) Status: Active Diabetes mellitus type 2, uncontrolled (250.02, E11.65) Status: Active Medications Name Dates Details Gabapentin [...] Procedure Dates Details [UTP] EMG Date: 12-May-2020 MRI Spine thoracic w/wo contrast [id number] Date: 12-May-2020 MRI Spine lumbar w/wo contrast [id number] Date: 12-May-2020 Immunization Name Dates Details Immunizations not documented Family History Name Dates Details Family history of diabetes mellitus (V18.0, Z83.3) Status: Active Family history of hypertension (V17.49, Z82.49) Status: Active Social History Name Dates Details - Status: Name Dates Details Never smoked tobacco (finding) Vital Signs Date Test Result Details [id number] Systolic blood pressure 178 mm[Hg] Status: Comments: [...] Dates Details Planned Observations [UTP] EMG On: 17-May-2020 Intent Planned Goals not documented Planned Encounters Appointment; KENAN CISSE M.D. On: 02-Jun-2020 15:30 Instructions Name Dates Details Instructions not documented Encounters Appointment; KENAN CISSE M.D. On: 12-May-2020 14:00 Encounter Diagnosis: Problem not documented Appointment; TK MEADOWS M.D. On: 17-May-2020 8:00 Encounter Diagnosis: Problem not documented
--- OUTSIDE RECORDS SUMMARY | 2020-08-10 02:20 | XMS REPORT | Summary of Care ---
:1950 Author Name YOUNG MORALES M.D. Address Unavailable Unavailable , Care Team Providers Name Role Phone KENAN CISSE M.D. Unavailable Unavailable EMMANUEL HUNTER MD Unavailable Unavailable MISHA LUCIA MD Unavailable Unavailable CARMEN COLMENARES PA, YOUNG A Unavailable Unavailable Unavailable Unavailable Unavailable Functional Status [...] Date: 12-May-2020 MRI Spine thoracic w/wo contrast 94461 Date: 12-May-2020 MRI Spine lumbar w/wo contrast 79881 Date: 12-May-2020 Immunization Name Dates Details Immunizations not documented Family History Name Dates Details Family history of diabetes mellitus (V18.0, Z83.3) Status: Active Family history of hypertension (V17.49, Z82.49) Status: Active Social History Name Dates Details - Status: Name Dates Details Never smoked tobacco (finding) Vital Signs Date Test Result Details [id number] Systolic blood pressure 178 mm[Hg] Status: Comments: [...] of Care Name Dates Details Planned Observations Planned Goals not documented Planned Encounters Appointment; TK MEADOWS M.D. On: 17-May-2020 8:00 Appointment; KENAN CISSE M.D. On: 02-Jun-2020 15:30 [...]
--- OUTSIDE RECORDS SUMMARY | 2020-08-10 02:20 | XMS REPORT | Summary of Care ---
:1950 Author Name Titi Cortes Address Unavailable Unavailable , Care Team Providers Name Role Phone Cortes, Walls Unavailable Unavailable SULTAN COLMENARES, EMMANUEL Sheppard Unavailable Unavailable REA COLMENARES, MISHA LUDWIG Unavailable Unavailable CARMEN COLMENARES [place], YOUNG Martinez Unavailable Unavailable Unavailable Unavailable Unavailable [...] Z86.69) Status: Resolved Procedures Procedure Dates Details [QL] BASIC METABOLIC PANEL W/EGFR Date: 02-Jun-2020 CT Abdomen w/wo contrast 42069 Date: 02-Jun-2020 CT Pelvis w/wo contrast 19968 Date: 02-Jun-2020 Immunization Name Dates Details Immunizations not documented Family History Name Dates Details Family history of diabetes mellitus (V18.0, Z83.3) Status: Active Family history of hypertension (V17.49, Z82.49) Status: Active Social History Name Dates Details - Status: Name Dates Details Never smoked tobacco (finding) Vital Signs Date Test Result Details [id number] Systolic blood pressure 123 mm[Hg] Status: Comments: Location: LUE; Position: Sitting Diastolic blood pressure 70 mm[Hg] Status: Comment s: Location: LUE; Position: Sitting Body height 68 in Status: Weight 197 lb Status: Body mass index (BMI) [Ratio] 29.95 kg/m2 Status: Body surface area Derived from formula 2.03 m2 S tatus: Body temperature 97.5 f Status: Heart Rate 99 /min Status: O2 SAT 97 % Status: 17-[id number]:31 Systolic blood pressure 178 mm[Hg] Status: Comments: [...] Planned Encounters Appointment; KENAN CISSE M.D. On: 04-Aug-2020 14:00 Interventions Provided Labs/Procedures/ImagingCT Abdomen w/wo contrast 45921; To Be Done: 02 Jun 2020CT Pelvis w/wo contrast 34934; To Be Done: 02 Jun 2020 Instructions Name Dates Details Instructions not documented Encounters Appointment; KENAN CISSE M.D. On: 12-May-2020 14:00 Encounter Diagnosis: Problem not documented Appointment; TK MEADOWS M.D. On: 17-May-2020 8:00 Encounter Diagnosis: Problem not documented
--- OUTSIDE RECORDS SUMMARY | 2020-08-10 02:20 | XMS REPORT | Summary of Care ---
:1950 Author Name Rachel Pedersen M.A. Address Unavailable Unavailable , Care Team Providers Name Role Phone Rachel Pedersen M.A. Unavailable Unavailable EMMANUEL HUNTER MD Unavailable Unavailable REA COLMENARES, MISHA LUDWIG Unavailable Unavailable CARMEN COLMENARES [place], YOUNG Martinez Unavailable Unavailable Unavailable Unavailable Unavailable [...] Date: 12-May-2020 MRI Spine thoracic w/wo contrast 10851 Date: 12-May-2020 MRI Spine lumbar w/wo contrast 38943 Date: 12-May-2020 Immunization Name Dates Details Immunizations not documented Family History Name Dates Details Family history of diabetes mellitus (V18.0, Z83.3) Status: Active Family history of hypertension (V17.49, Z82.49) Status: Active Social History Name Dates Details - Status: Name Dates Details Never smoked tobacco (finding) Vital Signs Date Test Result Details [id number] Systolic blood pressure 178 mm[Hg] Status: Comments: [...]
--- OUTSIDE RECORDS SUMMARY | 2020-08-10 02:20 | XMS REPORT | Summary of Care ---
:1950 Author Name Irlanda Benavidez M.A. Address Unavailable Unavailable , Care Team Providers Name Role Phone KENAN CISSE M.D. Unavailable Unavailable EMMANUEL HUNTER MD Unavailable Unavailable REA COLMENARES, MISHA LUDWIG Unavailable Unavailable CARMEN COLMENARES [place], YOUNG Martinez Unavailable Unavailable Unavailable Unavailable Unavailable [...] W/EGFR Date: 02-Jun-2020 CT Abdomen w/wo contrast 40943 Date: 02-Jun-2020 CT Pelvis w/wo contrast 43988 Date: 02-Jun-2020 Immunization Name Dates Details Immunizations not documented Family History Name Dates Details Family history of diabetes mellitus (V18.0, Z83.3) Status: Active Family history of hypertension (V17.49, Z82.49) Status: Active Social History Name Dates Details - Status: Name Dates Details Never smoked tobacco (finding) Vital Signs Date Test Result Details [id number] Systolic blood pressure 123 mm[Hg] Status: Comments: [...] /min Status: O2 SAT 97 % Status: 98-Yig-104585:31 Systolic blood pressure 178 mm[Hg] Status: Comments: [...] of Care Name Dates Details Planned Observations CT Abdomen w/wo contrast 43519 On: 02-Jun-[address] Pelvis w/wo contrast 40923 On: 02-Jun-2020 Intent Planned Goals not documented Planned Encounters Physical Therapy Referral Appointment; KENAN CISSE M.D. On: 04-Aug-2020 14:00 Interventions Provided Labs/Procedures/Imaging[QL] BASIC METABOLIC PANEL W/EGFR; To Be Done: 02 Jun 2020 Instructions Name Dates Details Instructions not documented Encounters Appointment; KENAN CISSE M.D. On: 12-May-2020 14:00 Encounter Diagnosis: Problem not documented Appointment; TK MEADOWS M.D. On: 17-May-2020 8:00 Encounter Diagnosis: Problem not documented Appointment; KENAN CISSE M.D. On: 02-Jun-2020 15:30 Encounter Diagnosis: Problem not documented
--- OUTSIDE RECORDS SUMMARY | 2020-08-10 02:20 | XMS REPORT | Summary of Care ---
:1950 Author Name KENAN CISSE M.D. Address Unavailable Unavailable , Care Team Providers Name Role Phone KENAN CISSE M.D. Unavailable Unavailable SULTAN COLMENARES, EMMANUEL Sheppard Unavailable Unavailable REA COLMENARES, MISHA LUDWIG Unavailable Unavailable CARMEN COLMENARES [place], YOUNG Martinez Unavailable Unavailable Unavailable Unavailable Unavailable [...] W/EGFR Date: 02-Jun-2020 CT Abdomen w/wo contrast 68191 Date: 02-Jun-2020 CT Pelvis w/wo contrast 91712 Date: 02-Jun-2020 Immunization Name Dates Details Immunizations not documented Family History Name Dates Details Family history of diabetes mellitus (V18.0, Z83.3) Status: Active Family history of hypertension (V17.49, Z82.49) Status: Active Social History Name Dates Details - Status: Name Dates Details Never smoked tobacco (finding) Vital Signs Date Test Result Details [id number] Systolic blood pressure 123 mm[Hg] Status: Comments: [...] /min Status: O2 SAT 97 % Status: 82-[id number]:31 Systolic blood pressure 178 mm[Hg] Status: Comments: [...] Observations Planned Goals not documented Planned Encounters Physical Therapy Referral Appointment; KENAN CISSE M.D. On: 04-Aug-2020 14:00 Interventions Provided Labs/Procedures/Imaging[QL] BASIC METABOLIC PANEL W/EGFR; To Be Done: 02 Jun 2020Discussion/SummaryPatient is a 70 yo M with PMHx of long-standing T2DM, presents to neurology clinic for evaluation ofL foot drop. 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 Etiology of such finding could be due to long-standing diabetes, or a tumor/mass affecting the area. We will proceed with lumbar plexus imaging. Will also refer to PT. - CT abdomen/pelvis with contrast - Physical therapy referral - advised to wear AFO brace - RTC after results Instructions Name Dates Details Instructions not documented Encounters Appointment; KENAN CISSE M.D. On: 12-May-2020 14:00 Encounter Diagnosis: Problem not documented Appointment; TK MEADOWS M.D. On: 17-May-2020 8:00 Encounter Diagnosis: Problem not documented Appointment; KENAN CISSE M.D. On: 02-Jun-2020 15:30 Encounter Diagnosis: Problem not documented
--- OUTSIDE RECORDS SUMMARY | 2020-08-10 02:20 | XMS REPORT | Summary of Care ---
:1950 Author Name Rachel Pedersen M.A. Address Unavailable Unavailable , Care Team Providers Name Role Phone Rachel Pedersen M.A. Unavailable Unavailable EMMANUEL HUNTER MD Unavailable Unavailable REA COLMENARES, MISHA LUDWIG Unavailable Unavailable CARMEN COLMENARES [place], YOUNG Martinez Unavailable Unavailable Unavailable Unavailable Unavailable [...] Z86.69) Status: Resolved Procedures Procedure Dates Details MRI Spine thoracic w/wo contrast 65513 Date: 12-May-2020 MRI Spine lumbar w/wo contrast 62455 Date: 12-May-2020 Immunization Name Dates Details Immunizations not documented Family History Name Dates Details Family history of diabetes mellitus (V18.0, Z83.3) Status: Active Family history of hypertension (V17.49, Z82.49) Status: Active Social History Name Dates Details - Status: Name Dates Details Never smoked tobacco (finding) Vital Signs Date Test Result Details 54-[id number] Systolic blood pressure 178 mm[Hg] Status: Comments: [...]
--- OUTSIDE RECORDS SUMMARY | 2020-08-10 02:21 | XMS REPORT | Summary of Care ---
:1950 Author Name KENAN CISSE M.D. Address Unavailable Unavailable , Care Team Providers Name Role Phone KENAN CISSE M.D. 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 Weakness (780.79, R53.1) Status: Active Weakness of left lower extremity (729.89, R29.898) Status: Active Diabetes mellitus type 2, uncontrolled (250.02, E11.65) Status: Active Polyradiculopathy (729.2, M54.10) Status : Active Lumbosacral plexopathy (353.1, G54.1) St atus: Active Medications Name Dates Details Gabapentin 100 [...] Status: Resolved Procedures Procedure Dates Details [QL] ROZ PANEL, COMPREHENSIVE Date: 04-Aug-2020 [QL] ANCA SCREEN WITH MPO AND PR3 WITH REFLEX TO ANCA TITER Date: 04-Aug-2020 [QL] C-REACTIVE PROTEIN Date: 04-Aug-2020 [Q] SED RATE BY MODIFIED WESTERGREN Date: 04-Aug-2020 Immunization Name Dates Details Immunizations not documented Family History Name Dates Details Family history of diabetes mellitus (V18.0, Z83.3) Status: Active Family history of hypertension (V17.49, Z82.49) Status: Active Social History Name Dates Details - Status: Name Dates Details Never smoked tobacco (finding) Vital Signs Date Test Result Details 3-[id number]:38 Systolic blood pressure 162 mm[Hg] Status: Comments: Location: RLE; Position: Sitting Diastolic blood pressure 76 mm[Hg] Status: Comment s: Location: RLE; Position: Sitting Body height 68 in Status: Weight 209 lb Status: Body mass index (BMI) [Ratio] 31.78 kg/m2 Status: Body surface area Derived from formula 2.08 m2 S tatus: Body temperature 97.4 f Status: Heart Rate 65 /min Status: O2 SAT 99 % Status: Comments: So urce: RA Results Date Description Value Details Results not documented Plan of Care Name Dates Details Planned Observations Planned Goals not documented Planned Encounters Physical Therapy Referral Appointment; KENAN CISSE M.D. On: 22-Dec-2020 13:00 Interventions Provided Labs/Procedures/Imaging[Q] SED RATE BY MODIFIED WESTERGREN; To Be Done: 04 Aug 2020[QL] ROZ PANEL, COMPREHENSIVE; To Be Done: 04 Aug 2020[QL] ANCA SCREEN WITH MPO AND PR3 WITH REFLEX TO ANCA TITER; To Be Done: 04 Aug 2020[QL] C-REACTIVE PROTEIN; To Be Done: Augiscussion/SummaryPatient is a 70 yo M with PMHx of long-standing T2DM, presents to neurology clinic for evaluation ofL foot drop. 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 - Physical therapy referral - advised to continue to wear AFO brace - Labs: ESR, CRP, ANCA, ROZ to r/o vasculitis or inflammatory cause - RTC 3 months Instructions Name Dates Details Instructions not documented Encounters Appointment; KENAN CISSE M.D. On: 12-May-2020 14:00 Encounter Diagnosis: Problem not documented Appointment; TK MEADOWS M.D. On: 17-May-2020 8:00 Encounter Diagnosis: Problem not documented Appointment; KENAN CISSE M.D. On: 02-Jun-2020 15:30 Encounter Diagnosis: Problem not documented Appointment; KENAN CISSE M.D. On: 04-Aug-2020 14:00 Encounter Diagnosis: Problem not documented
--- OUTSIDE RECORDS SUMMARY | 2020-08-10 02:21 | XMS REPORT | Summary of Care ---
:1950 Author Organization [facility] Address [address] [place] [address] Care Team Providers Name Role Phone Pcp, Does Not Have A Primary Care Provider Reason for Visit Reason Comments Results COVID Encounter Details Date Type Department Care Team Description 07/02/2020 Telephone [facility] Pcp, Patient Does Not Results (COVID ) [address] [place] [address] [place] [address] [address] [place] [address] [place], [place] [address] Allergies Not on Filedocumented as of this encounter (statuses as of 07/02/2020) Medications Not on filedocumented as of this encounter (statuses as of 07/02/2020) Active Problems Not on filedocumented as of this encounter (statuses as of 07/02/2020) Social History Tobacco Use Types Packs/Day Years Used Date Never Assessed Sex Assigned at Date Recorded Not on file documented as of this encounter Last Filed Vital Signs Not on filedocumented in this encounter Miscellaneous Notes Telephone Encounter - Paula Guzman RN - 07/02/2020 1:39 PM [facility] Faisal Monteiro Jr. is a 70 year old male No answer X multiple attempts. LVM to call back. Paula Guzman, RN, BSN [facility] Triage Nurse elephone Encounter - Zena Cortes - 07/02/2020 9:30 AM CST Faisal Monteiro Jr. is a 70 year old male. Pt is calling for his test results ( was not able to sign in for my chart COVID-19 (MOLECULAR TESTING NUCLEIC ACID AMPLIFICATION) Status: Final result Visible to patient: No (not released) Dx: Exposure to SARS-associated coronavirus Specimen Information: NASOPHARYNGEAL SWAB Component Ref Range & Units 3d ago SARS-CoV-2 NAAT Not Detected Not Detected documented in this encounter Plan of Treatment Health Maintenance Due Date Last Done Comments HEPATITIS C (HCV) SCREEN 1950 Depression Screening 1962 DTaP,Tdap,and Td Vaccines (1 - Tdap) 1969 COLON CANCER SCREENING ANNUAL FIT/FOBT 02/03/2000 COLON CANCER SCREENING FIT DNA EVERY 3 YEARS 02/03/2000 COLON CANCER SCREENING SIGMOIDOSCOPY EVERY 5 YEARS 02/03/2000 COLONOSCOPY 02/03/2000 Colorectal Cancer Screening 02/03/2000 Zoster Recombinant Vaccine (SHINGRIX) (1 of 2) 02/03/2000 Medicare Wellness Visit 2015 PNEUMOCOCCAL VACCINES 65+ (1 of 1 - PPSV23) 2015 INFLUENZA VACCINE (#1) 2020 documented as of this encounter Results Not on filedocumented in this encounter Insurance Payer Benefit Plan / Subscriber ID Effective Dates Phone Addre ss Type Group [facility] [id number] 2017-en HMO/PPO/PO [employer]ARED SERVICES HEALTHCARE t S SHARED SERVICE documented as of this encounter
--- OUTSIDE RECORDS SUMMARY | 2020-08-10 02:21 | XMS REPORT | Summary of Care ---
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 [address] [place] [address] Exposure to Medicine - [facility], Adc Fam Pob I SARS-associated [address] [facility] coronaviru s ([address] Dx) [place] [address] Allergies Not on Filedocumented as of this encounter (statuses as of 06/29/2020) Medications Not on filedocumented as of this encounter (statuses as of 06/29/2020) Active Problems Not on filedocumented as of this encounter (statuses as of 06/29/2020) Social History Tobacco Use Types Packs/Day Years Used Date Never Assessed Sex Assigned at Date Recorded Not on file documented as of this encounter Last Filed Vital Signs Not on filedocumented in this encounter Nursing Notes Jarrod Merchant MA - 06/29/2020 4:40 PM Macario Monteiro Jr. is a 70 year old male here for COVID Screening with a Nasopharyngeal Swab All droplet and contact precautions taken with appropriate PPE worn while interacting with patient. ? Goggles ? N95 Mask ? Gloves ? Gown RR 19 Pulse Ox 98% Patient educated on plan of care for visit, swabbing technique, risks and benefits of test and length of time to receive results. Verbal consent obtained to perform test. CDC Fact Sheet for Patients nCoV Diagnostic Panel dated 09/13/2019 and Factsheet What to Do if Sick with COVID 19 08/24/19 provided. Patient swabbed per appropriate nasopharyngeal technique, and patient tolerated well. Patient was discharged from the testing clinic in stable condition. Jarrod Merchant MA 06/29/2020 4:33 PM ON BROACHER documented in this encounter Plan of Treatment Name Type Priority Associated Diagnoses Order S chedule COVID-19 (MOLECULAR LAB Routine Exposure to SARS-asso ciated Ordered: 06/29/2020 TESTING coronavirus NUCLEIC ACID AMPLIFICATION) Health Maintenance Due Date Last Done Comments [...] this encounter Visit Diagnoses Diagnosis Exposure to SARS-associated coronavirus - Primary documented in this encounter Additional Health Concerns Infection Onset Date Last Indicated Resolved Time COVID-19 Rule Out 06/29/2020 06/29/2020 documented as of this encounter Insurance Payer Benefit Plan / Subscriber ID Effective Dates Phone Addre ss Type Group [facility] [id number] 2017-[place] HMO/PPO/PO [employer]ARED SERVICES HEALTHCARE t S SHARED SERVICE [phone] [id number] (Work) documented as of this encounter
--- OUTSIDE RECORDS SUMMARY | 2020-08-10 02:21 | XMS REPORT | Summary of Care ---
:1950 Author Name Reema Constantin Irlanda Address Unavailable Unavailable , Care Team Providers Name Role Phone Irlanda Benavidez M.A. Unavailable Unavailable SULTAN COLMENARES, EMMANUEL Sheppard Unavailable Unavailable REA COLMENARES, MISHA LUDWIG Unavailable Unavailable CARMEN COLMENARES [place], YOUNG Martinez Unavailable Unavailable Unavailable Unavailable Unavailable [...] W/EGFR Date: 02-Jun-2020 CT Abdomen w/wo contrast 35871 Date: 02-Jun-2020 CT Pelvis w/wo contrast 81278 Date: 02-Jun-2020 Immunization Name Dates Details Immunizations not documented Family History Name Dates Details Family history of diabetes mellitus (V18.0, Z83.3) Status: Active Family history of hypertension (V17.49, Z82.49) Status: Active Social History Name Dates Details - Status: Name Dates Details Never smoked tobacco (finding) Vital Signs Date Test Result Details :42 Systolic blood pressure 123 mm[Hg] Status: Comments: [...] /min Status: O2 SAT 97 % Status: [id number]-[id number]:31 Systolic blood pressure 178 mm[Hg] Status: Comments: [...] % Status: Results Date Description Value Details :23 MRI Spine lumbar w/wo contrast 18965 Spine lumbar w/wo contrast SEE NOTES Comme nts: EXAM: MRI THORACIC SPINE WITHOUT AND WITH CONTRAST.EXAM: MRI LUMBAR SPINE WITHOUT AND WITH CONTRAST.DATE: 05/31/2020 11:14 CSTINDICATION: Patient with left-sided foot drop. Patient also complains ofconti MRI nuous back pain. COMPARISON: None.TECHNIQUE: Multiplanar multisequence magnetic resonance imaging images of thethoracic and lumbar spine.IV Contrast: 20 mL Dotarem.FINDINGS:CORD EVALUATION: The visualize d cord appears n ormal in size and signal. Theconus ends behind the T12-L1 disc space level. The nerve roots of the caudaequina appear unremarkable.THORACIC SPINE:The thoracic vertebral body heights are maintained. Ther e is no focal bonelesion identified. There is no marrow signal abnormality.There is no disc protrusion, canal stenosis or neural foraminal narrowing inthe thoracic spine.LUMBAR SPINE:Fifi gical changes fr om prior left L5 laminectomy are noted.The lumbar vertebral body heights are maintained and there is no focal bonelesion. There is no marrow signal abnormality.At L1-2, L2-3 and L3-4, th ere is no disc p rotrusion, canal stenosis or neuralforaminal narrowing.At L4- 5: There is a minimal disc bulge. There is no canal stenosis or neuralforaminal narrowing. Mild right facet disease is noted. At L5-S1: There is mild facet disease which is more pronounced on the right.There is no disc protrusion, canal stenosis or neural foraminal narrowing.The pre and paravertebral soft tissues appear unrema rkable. The visu alized softtissues in the abdomen appear unremarkable.IMPRESSION:1. Cord appears normal in size and signal. The conus ends behind the F78-G8vhfo space level. Nerve roots of the cauda equ nhung appear unrem arkable.2. Unremarkable MRI of the thoracic spine with no canal stenosis or neuralforaminal narrowing.3. Surgical changes from prior left L5 laminectomy. Mild enhancement is notedin the surgical bed and this indicates scar tissue.4. There is no canal stenosis or neural foraminal narrowing in the lumbarspine.--Read by: Sujit Hollisictated Date/time: 05/31/20 15:00Electronically Signed by: Sujit Noel MD 05/31/2015:09FINAL REPORT [id number] MRI Spine thoracic w/wo contrast 65928 Spine thoracic w/wo SEE NOTES Comments: EX AM: MRI THORACIC SPINE WITHOUT AND WITH CONTRAST.EXAM: MRI LUMBAR SPINE WITHOUT AND WITH CONTRAST.DATE: 05/31/2020 11:14 CSTINDICATION: Patient with left-sided foot drop. Patient also complains ofconti contrast MRI nuous back pain. COMPARISON: None.TECHNIQUE: Multiplanar multisequence magnetic resonance imaging images of thethoracic and lumbar spine.IV Contrast: 20 mL Dotarem.FINDINGS:CORD EVALUATION: The visualize d cord appears n ormal in size and signal. Theconus ends behind the T12-L1 disc space level. The nerve roots of the caudaequina appear unremarkable.THORACIC SPINE:The thoracic vertebral body heights are maintained. Ther e is no focal bonelesion identified. There is no marrow signal abnormality.There is no disc protrusion, canal stenosis or neural foraminal narrowing inthe thoracic spine.LUMBAR SPINE:Fifi gical changes fr om prior left L5 laminectomy are noted.The lumbar vertebral body heights are maintained and there is no focal bonelesion. There is no marrow signal abnormality.At L1-2, L2-3 and L3-4, th ere is no disc p rotrusion, canal stenosis or neuralforaminal narrowing.At L4- 5: There is a minimal disc bulge. There is no canal stenosis or neuralforaminal narrowing. Mild right facet disease is noted. At L5-S1: There is mild facet disease which is more pronounced on the right.There is no disc protrusion, canal stenosis or neural foraminal narrowing.The pre and paravertebral soft tissues appear unrema rkable. The visu alized softtissues in the abdomen appear unremarkable.IMPRESSION:1. Cord appears normal in size and signal. The conus ends behind the N25-W5sdxl space level. Nerve roots of the cauda equ nhung appear unrem arkable.2. Unremarkable MRI of the thoracic spine with no canal stenosis or neuralforaminal narrowing.3. Surgical changes from prior left L5 laminectomy. Mild enhancement is notedin the surgical bed and this indicates scar tissue.4. There is no canal stenosis or neural foraminal narrowing in the lumbarspine.--Read by: Sujit Hollisictated Date/time: 05/31/20 15:00Electronically Signed by: Sujit Noel MD 05/31/2015:09FINAL REPORT Plan of Care Name Dates Details Planned Observations Planned Goals not documented Planned Encounters Physical Therapy Referral Appointment; KENAN CISSE M.D. On: 04-Aug-2020 14:00 Instructions Name Dates Details Instructions not documented Encounters Appointment; KENAN CISSE M.D. On: 12-May-2020 14:00 Encounter Diagnosis: Problem not documented Appointment; TK MEADOWS M.D. On: 17-May-2020 8:00 Encounter Diagnosis: Problem not documented Appointment; KENAN CISSE M.D. On: 02-Jun-2020 15:30 Encounter Diagnosis: Problem not documented
--- OUTSIDE RECORDS SUMMARY | 2020-08-10 02:21 | XMS REPORT | Summary of Care ---
:1950 Author Name YOUNG MORALES M.D. Address Unavailable Unavailable , Care Team Providers Name Role Phone KENAN CISSE M.D. Unavailable Unavailable EMMANUEL HUNTER MD Unavailable Unavailable MISHA LUCIA MD Unavailable Unavailable CARMEN COLMENARES [place], YOUNG A Unavailable Unavailable Unavailable Unavailable Unavailable Functional Status Name Dates Details Functional status health issues are not documented Status: Name Dates Details Cognitive status health issues are not documented Status: Problems Name Dates Details Weakness (780.79, R53.1) Status: Active Polyradiculopathy (729.2, M54.10) Status : Active Lumbosacral plexopathy (353.1, G54.1) St atus: Active Diabetes mellitus type 2, uncontrolled (250.02, E11.65) Status: Active Weakness of left lower extremity (729.89, R29.898) Status: Active 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 The conus ends behind the R13-W2pqqf space level. Nerve roots of the cauda [...] MDDictated Date/time: 05/31/20 15:00Electronically Signed by: Sujit Noel MD 05/31/2015:09FINAL REPORT [id number] MRI Spine thoracic w/wo contrast 30591 Spine thoracic w/wo SEE NOTES Comments: EX [...] and signal. The conus ends behind the A44-C3faab space level. Nerve roots of the cauda [...]
--- OUTSIDE RECORDS SUMMARY | 2020-08-10 02:21 | XMS REPORT | Summary of Care ---
:1950 Author Name YOUNG MORALES M.D. Address Unavailable Unavailable , Care Team Providers Name Role Phone KENAN CISSE M.D. 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
--- OUTSIDE RECORDS SUMMARY | 2020-08-10 02:21 | XMS REPORT | Summary of Care ---
:1950 Author Name KENAN CISSE M.D. Address Unavailable Unavailable , Care Team Providers Name Role Phone KENAN CISSE M.D. Unavailable Unavailable SULTAN COLMENARES, EMMANUEL Sheppard Unavailable Unavailable REA COLMENARES, MISHA LUDWIG Unavailable Unavailable CARMEN COLMENARES [place], YOUNG Martinez Unavailable Unavailable KENAN CISSE MD [...] (finding) Vital Signs Date Test Result Details [id number] Systolic blood pressure 162 mm[Hg] Status: Comments: [...] Aug 2020[QL] C-REACTIVE PROTEIN; To Be Done: 04 Aug 2020 Instructions Name Dates Details Instructions not [...]
--- OUTSIDE RECORDS SUMMARY | 2020-08-10 02:21 | XMS REPORT | Summary of Care ---
:1950 Author Name YOUNG MORALES M.D. Address Unavailable Unavailable , Care Team Providers Name Role Phone YOUNG MORALES M.D. Unavailable Unavailable EMMANUEL HUNTER MD Unavailable Unavailable MISHA LUCIA MD Unavailable Unavailable CARMEN COLMENARES [place], YOUNG Martinez Unavailable Unavailable Unavailable Unavailable Unavailable [...] W/EGFR Date: 02-Jun-2020 CT Abdomen w/wo contrast 87149 Date: 02-Jun-2020 CT Pelvis w/wo contrast 10129 Date: 02-Jun-2020 Immunization Name Dates Details Immunizations not documented Family History Name Dates Details Family history of diabetes mellitus (V18.0, Z83.3) Status: Active Family history of hypertension (V17.49, Z82.49) Status: Active Social History Name Dates Details - Status: Name Dates Details Never smoked tobacco (finding) Vital Signs Date Test Result Details [id number]-[id number] Systolic blood pressure 123 mm[Hg] Status: Comments: [...] /min Status: O2 SAT 97 % Status: Results Date Description Value Details 9-[id number]:23 MRI Spine lumbar w/wo contrast 11588 Spine lumbar w/wo contrast SEE NOTES Comme [...] and signal. The conus ends behind the M67-P5chkl space level. Nerve roots of the cauda [...] Signed by: Sujit Noel MD 05/31/2015:09FINAL REPORT [id number] MRI Spine thoracic w/wo contrast 20329 Spine thoracic w/wo SEE NOTES Comments: EX [...] and signal. The conus ends behind the X36-T5hypp space level. Nerve roots of the cauda [...] Signed by: Sujit Noel MD 05/31/2015:09FINAL REPORT [id number] CT Abdomen/Pelvis w/wo contrast 34572 Abdomen/Pelvis w/wo SEE NOTES Comments: EX AM: CT ABDOMEN AND PELVIS WITH CONTRASTDATE: 06/10/2020 11:10 AM CSTINDICATION: - R29.898 Other symptoms and signs involving the musculoskeletalsystemADDITIONAL INFORMATION: None.COMPAR KIRILL: None.T contrast CT ECHNIQUE: Volume tric CT of the abdomen and pelvis acquired following theintravenous administration of contrast. Axial, coronal and sagittal images areprovided.IV contrast: 98 mL of Omnipaque 300Enteric contrast: Water/ Omnipaque 300 mixDLP (mGy-cm): 2175FINDINGS:Dispensing Operator: Noncontributory.Lines, tubes and hardware: None.Lower thorax: Clear.Liver: Slightly lobulated contour of the liver with hypertrophy of the leftlobe and caudate lobe suggestive of cirrhotic appearance.Biliary tree: No intra- or extrahepatic bile duct dilation.Gallbladder: Normal.Pancreas: Normal.Spleen: Mild splenomegaly (13 cm).Adrenal s: Normal.Kidney s and ureters: Normal.Bladder: Normal.Reproductive organs: Enlarged prostateGastrointestinal tract:Lower esophagus: Normal.Stomach: Large hiatal hernia with most of the stomach in the ch est.Small bowel: Normal.Colon: Normal.Appendix: Normal.Peritoneum, mesentery and retroperitoneum: No free air, ascites or loculatedfluid.Lymph nodes: Normal.Vasculature:Aorta and branches: Moderate to l arge amount of c alcified atheromatous plaque.No abdominal aortic aneurysm.IVC and veins: Normal.Portal and mesenteric vasculature: Prominent portal vein measuring 1.7 cm.Bones: No acute abnormality.Soft tissues: Periph erally calcified nodule in the right buttock is probablybenign and possibly related to prior injection. Soft tissue stranding in theright lower anterior abdominal wall is nonspecific and could be relate d toedema/inflammation/injection (series 3 image 69).IMPRESSION: 1. Cirrhotic appearance of the liver with prominence of the portal vein andmild splenomegaly.2. Large hiatal hernia wit h most of the st omach in the chest.3. Aorto iliac atherosclerotic changes.4. Soft tissue stranding subcutaneous fat in the right lower anteriorabdominal wall could be related to edema/inflammation/inj ection site. Cor relatewith physical examination findings.--Read by: Cl Jacobs MDDictated Date/time: 06/10/20 14:08Electronically Signed by: Cl Jacobs MD 06/10/2014:28FINAL REPORT Plan of Care Name Dates Details [...]
--- OUTSIDE RECORDS SUMMARY | 2020-08-10 02:21 | XMS REPORT | Summary of Care ---
:1950 Author Name Irlanda Benavidez M.A. Address Unavailable Unavailable , Care Team Providers Name Role Phone Irlanda Benavidez M.A. Unavailable Unavailable SULTAN COLMENARES, EMMANUEL Sheppard Unavailable Unavailable REA COLMENARES, MISHA LUDWIG Unavailable Unavailable CARMEN COLMENARES [place], YOUNG Martinez Unavailable Unavailable Unavailable Unavailable Unavailable [...] [QL] BASIC METABOLIC PANEL W/EGFR Date: 02-Jun-2020 Immunization Name Dates Details Immunizations not documented Family History Name Dates Details Family history of diabetes mellitus (V18.0, Z83.3) Status: Active Family history of hypertension (V17.49, Z82.49) Status: Active Social History Name Dates Details - Status: Name Dates Details Never smoked tobacco (finding) Vital Signs Date Test Result Details No Known Vitals to report Results Date Description Value Details Results not [...]
--- OUTSIDE RECORDS SUMMARY | 2020-08-10 02:21 | XMS REPORT | Summary of Care ---
:1950 Author Name Orquidea Carreon Address Unavailable Unavailable , Care Team Providers Name Role Phone Orquidea Carreon Unavailable Unavailable SULTAN COLMENARES, EMMANUEL Sheppard Unavailable Unavailable REA COLMENARES, MISHA LUDWIG Unavailable Unavailable CARMEN COLMENARES [place], YOUNG Martinez Unavailable Unavailable Unavailable Unavailable Unavailable [...] W/EGFR Date: 02-Jun-2020 CT Abdomen w/wo contrast 61529 Date: 02-Jun-2020 CT Pelvis w/wo contrast 75425 Date: 02-Jun-2020 Immunization Name Dates Details Immunizations not documented Family History Name Dates Details Family history of diabetes mellitus (V18.0, Z83.3) Status: Active Family history of hypertension (V17.49, Z82.49) Status: Active Social History Name Dates Details - Status: Name Dates Details Never smoked tobacco (finding) Vital Signs Date Test Result Details 3-[id number]:42 Systolic blood pressure 123 mm[Hg] Status: Comments: [...] % Status: Results Date Description Value Details [id number] MRI Spine lumbar w/wo contrast 72228 Spine lumbar w/wo contrast SEE NOTES Comme [...] and signal. The conus ends behind the C16-D5espr space level. Nerve roots of the cauda [...] Signed by: Sujit Noel MD 05/31/2015:09FINAL REPORT [id number] MRI Spine thoracic w/wo contrast 14550 Spine thoracic w/wo SEE NOTES Comments: EX [...] and signal. The conus ends behind the B91-I3hzma space level. Nerve roots of the cauda [...]
--- OUTSIDE RECORDS SUMMARY | 2020-08-10 02:22 | XMS REPORT | Summary of Care ---
:1950 Author Name YOUNG MORALES M.D. Address Unavailable Unavailable , Care Team Providers Name Role Phone EMMANUEL HUNTER MD Unavailable Unavailable REA COLMENARES, MISHA LUDWIG Unavailable Unavailable CARMEN COLMENARES [place], YOUNG Martinez Unavailable Unavailable BETITO COLMENARES, KENAN Sarmiento Unavailable Unavailable Unavailable Unavailable Unavailable Functional Status [...] Gabapentin 100 MG Oral Capsule Refills: 0 LVNActive Naproxen TABS Refills: 0 LVNActive Losartan Potassium TABS Refills: 0 LVNActive Levemir FlexPen 100 UNIT/ML SOPN Refills: 0 LVNActive Allergies and Adverse Reactions Name Dates Details [...] (finding) Vital Signs Date Test Result Details [id number] Systolic blood pressure 162 mm[Hg] Status: Comments: [...] urce: RA Results Date Description Value Details 10:00 [QL] SED RATE BY MODIFIED WESTERGREN SED RATE BY MODIFIED WESTERGREN 2 mm/h (Normal) Range: < OR = 20 Comments: SPECIM EN RECEIVED DATE AND TIME: [id number] Plan of Care Name Dates Details Planned Observations Planned Goals not documented Planned Encounters Appointment; KENAN CISSE M.D. On: 22-Dec-2020 13:00 Instructions Name Dates Details Instructions not documented Encounters Appointment; KENAN CISSE M.D. On: 12-May-2020 14:00 Encounter Diagnosis: Problem not documented Appointment; TK MEADOWS M.D. On: 17-May-2020 8:00 Encounter Diagnosis: Problem not documented Appointment; KENAN CISSE M.D. On: 02-Jun-2020 15:30 Encounter Diagnosis: Problem not documented Appointment; KENAN CISSE M.D. On: 04-Aug-2020 14:00 Encounter Diagnosis: Problem not documented
--- OUTSIDE RECORDS SUMMARY | 2020-08-10 02:22 | XMS REPORT | Summary of Care ---
:1950 Author Name KENAN CISSE M.D. Unavailable Unavailable , Care Team Providers Name Role Phone EMMANUEL HUNTER MD Unavailable Unavailable REA COLMENARES, MISHA LUDWIG Unavailable Unavailable CARMEN COLMENARES [place] Unavailable Unavailable KENAN ICSSE MD Unavailable Unavailable Unavailable Unavailable Unavailable Functional [...] Status: Resolved Procedures Procedure Dates Details [QL] ANCA SCREEN WITH MPO AND PR3 WITH REFLEX TO ANCA TITER Date: 04-Aug-2020 [Q] SED RATE BY MODIFIED WESTERGREN Date: 04-Aug-2020 Immunization Name Dates Details Immunizations not documented Family History Name Dates Details Family history of diabetes mellitus (V18.0, Z83.3) Status: Active Family history of hypertension (V17.49, Z82.49) Status: Active Social History Name Dates Details - Status: Name Dates Details Never smoked tobacco (finding) Vital Signs Date Test Result Details [id number] Systolic blood pressure 162 mm[Hg] Status: Comments: [...] urce: RA Results Date Description Value Details :00 [QL] ROZ PANEL, COMPREHENSIVE ROZ SCREEN, IFA NEGATIVE Range: NEGATIVE (Normal) Comments: ROZ IF A is a first line screen for detecting thepresence of up to approximately 150 autoantibodies invarious autoimmune diseases. A negative ROZ IFA resultsuggests an ROZ-associated autoimmune disease i s notpresent at this time, but is not definitive. If thereis high clinical suspicion for Sjogren's syndrome,testing for anti-SS-A/Ro antibody should be considered.Anti-Karyn-1 antibody should be considered for clinicallys uspected inflammatory myopathies. AC-0: Negative International Consensus on ROZ Patterns(https://doi.org/10.1515/kfvw-9162-9424) For additional information, please refer tohttp://educati on.[employer].com/faq/LNJ748(This link is being provided for informational/educational purposes only.) SPECIMEN RECEIVED DATE AND TIME: DNA (DS) <1 {IU/ml} Comments: IU/mL Interpretation < or = 4 Negative 5-9 Indeterminate > or = 10 Positive SPECIMEN RECEIVED DATE AND TIME: ANTIBODY (Normal) SCL-70 ANTIBODY <1.0 NEG {AI} Range: <1.0 NEG (Normal) Comments: SPECIM EN RECEIVED DATE AND TIME: SM ANTIBODY <1.0 NEG {AI} Range: <1.0 NEG (Normal) SM/MANAGER GROUP ANTIBODY <1.0 NEG {AI} Range: <1.0 NEG (Normal) Comments: SPECIM EN RECEIVED DATE AND TIME: SJOGRENS <1.0 NEG {AI} Range: <1.0 NEG ANTIBODY (SS-A) (Normal) SJOGRENS <1.0 NEG {AI} Range: <1.0 NEG ANTIBODY (SS-B) (Normal) Comments: SPECIM EN RECEIVED DATE AND TIME: : [QL] SED RATE BY MODIFIED WESTERGREN SED RATE BY MODIFIED WESTERGREN 2 mm/h (Normal) Range: < OR = 20 Comments: SPECIM EN RECEIVED DATE AND TIME: : [QL] C-REACTIVE PROTEIN C-REACTIVE PROTEIN 1.0 mg/L (Normal) Range: <8. 0 Comments: SPECIM EN RECEIVED DATE AND TIME: Plan of Care Name Dates Details Planned [...]
== END 2020-08-09 00:51 | disposition home or self-care (01) ==
LOC: ER 20:11
DX: R10.32 Left lower quadrant pain (principal); I10 Essential (primary) hypertension; E11.9 Type 2 diabetes mellitus without complications; Z88.5 Allergy status to narcotic agent
CPT/HCPCS: 85025; 80048; 36415; 80076; 81003; 83690; 74177; Q9967; J3010; J7040; J2405; 96374; 96375; 99284